=== PATIENT | female | born 1950 | race Caucasian/White ===

== ENCOUNTER 2018-09-23 17:32 | Inpatient (IN) ==
[2018-09-23] MEDS ORDERED: Diphtheria/Tetanus/Pertussis Vaccine Inj 0.5 ML Syringe IM ONE (17:41)
[2018-09-23] MEDS ORDERED: ceFAZolin 2 GM Premix Inj 2 GM/50 ML PIGGYBACK IV.SIG ONE (17:41)
[2018-09-23] MEDS ORDERED: Sod Chloride 0.9% Inj 1,000 ML IV.CONT SCH (17:45)
--- NOTE | 2018-09-23 17:48 | ED ---
HPI General Chief Complaint: Extremity Injury, Lower Stated Complaint: Fall Time Seen by Provider: 09/23/18 17:33 Source: patient Mode of arrival: EMS Limitations: physical limitation History of Present Illness HPI Narrative: Patient is a 67-year-old female who presents to the emergency room with complaints of right ankle pain. Patient reports that she was taking [place] decorations out of her attic today -she was on her last box of decorations when she was attempting to walk out of her attic. Patient reports that she missed the ladder and fell out of her attic landing on her right ankle. Reports that she did hit her head when she fell but did not suffer any loss of consciousness. Patient currently denies taking any medications, she has no medical problems. Patient with no chest pain or shortness of breath, no abdominal pain, no nausea or vomiting or diarrhea. Patient reports pains to the right ankle. Related Data Allergies Allergy/AdvReac Type Severity Reaction Status Date / Time No Known Allergies Allergy Uncoded 08/17/16 10:53 Review of Systems ROS: all other systems reviewed are negative PMFSH History History Provided By: Patient Family History Family History Other Osteoarthritis Social History Social History Smoking Status: Never smoker How Often Do You Have a Drink Containing Alcohol: 2 to 3 times a week Recent Travel in [facility] within the Last 8 Weeks: No Recent Out of Country Travel within the Last 8 Weeks: No Exam Narrative Exam Narrative: GENERAL: Moderate distress SKIN: Focused skin assessment warm/dry. HEAD: Atraumatic. Normocephalic. EYES: Pupils equal and round. No scleral icterus. No injection or drainage. ENT: No nasal bleeding or discharge. Mucous membranes pink and moist. NECK: Trachea midline. No JVD. CARDIOVASCULAR: Regular rate and rhythm. No murmur appreciated. RESPIRATORY: No accessory muscle use. Clear to auscultation. Breath sounds equal bilaterally. GASTROINTESTINAL: Abdomen soft, non-tender, nondistended. Hepatic and splenic margins not palpable. MUSCULOSKELETAL: Patient with open fracture to the left ankle, she does have positive pedal pulses with crepitus to her left tib-fib. NEUROLOGICAL: Awake and alert. No obvious cranial nerve deficits. Motor grossly within normal limits. Normal speech. PSYCHIATRIC: Appropriate mood and affect; insight and judgment normal. Procedures Orthopedic Joint Reduction Joint #1: Time Out Performed: Yes Side: right Joint Reduction Location: ankle Analgesia: procedural sedation Technique Used: traction/counter-traction and direct manipulation Post-Reduction Neuro Exam: intact and no change Post-Reduction Vascular Exam: intact Post Reduction X-Ray Obtained: Yes Splint Applied: Yes Patient Tolerated Procedure: well Procedural Sedation Indications: fracture/dislocation reduction ASA Class: ASA 1 Normal Healthy Patient Time of Last PO Intake: 13:00 Preparation: cafeteria monitor applied, pulse oximeter, capnometry used, supplemental O2 applied, suction/airway equipment at bedside and IV secured IV Propofol Dose (mgs): 50 Patient Tolerated Procedure: well Complications: hypoxia Interventions: assist by BVM Additional Comments: procedural sedation for 15 minutes Course Initial Documented Vital Signs Temperature 98.0 F 09/23/18 17:48 Pulse Rate 62 09/23/18 17:48 Respiratory Rate 16 09/23/18 17:48 Blood Pressure 182/85 H 09/23/18 17:48 Pulse Oximetry 99 09/23/18 17:48 Last Documented Vital Signs Temperature 98.0 F 09/23/18 17:48 Pulse Rate 64 09/23/18 18:40 Respiratory Rate 16 09/23/18 18:40 Blood Pressure 160/80 H 09/23/18 18:40 Pulse Oximetry 99 09/23/18 19:15 Medical Decision Making MDM Narrative Medical decision making narrative: Patient with an open ankle fracture, patient will be given 2 g of Ancef, will update her tetanus. Call made to orthopedic surgery case reviewed with mayo Knight for Dr. Groves - understands that patient has open ankle fracture with crepitus - recommends washout and reduction with splint with plans for OR tomorrow. I did place consult to orthopedic surgery pt's tetanus is up to date - right ankle with open fracture subluxation, there is gas seen in the tissue and appears to be intra-articular. case reviewed with Dr. Norman (with trauma surgery) - request admission to medicine service as she has an isolated injury case reviewed with Dr. Tan who accepts pt to service Medical Screen Exam Complete: Yes Emergency Medical Condition: Yes Differential Diagnosis Differential Diagnosis: Open ankle fracture, closed head injury Medical Records Medical records reviewed: Yes I reviewed the patient's medical records. Lab Data Result diagrams: 09/23/18 18:00 09/23/18 18:00 Lab Results 1109/23/18 09/23/18 Range/Units 18:00 18:00 18:00 WBC 7.7 (4.0-11.0) th/mm3 RBC 3.71 L (4.00-5.30) mil/mm3 Hgb 12.9 (11.6-15.3) gm/dL Hct 36.1 (35.0-46.0) % MCV 97.3 (80.0-100.0) fL MCH 34.7 H (27.0-34.0) pg MCHC 35.6 (32.0-36.0) % RDW 13.0 (11.6-17.2) % Plt Count 193 (150-450) th/mm3 MPV 8.6 (7.0-11.0) fL Neut % (Auto) 75.0 H (16.0-70.0) % Lymph % (Auto) 16.0 (9.0-44.0) % Price % (Auto) 7.5 (0.0-8.0) % Eos % (Auto) 1.1 (0.0-4.0) % Baso % (Auto) 0.4 (0.0-2.0) % Neut # (Auto) 5.8 (1.8-7.7) th/mm3 Lymph # (Auto) 1.2 (1.0-4.8) th/mm3 Price # (Auto) 0.6 (0.0-0.9) th/mm3 Eos # (Auto) 0.1 (0.0-0.4) th/mm3 Baso # (Auto) 0.0 (0.0-0.2) th/mm3 WBC Differential . Differential Comment Auto diff final PT 11.3 (9.8-11.6) sec INR 1.1 Ratio APTT 22.0 L (23.4-31.7) sec Sodium 142 (136-145) meq/L Potassium 4.1 (3.5-5.1) meq/L Chloride 109 H (98-107) meq/L Carbon Dioxide 25.3 (21.0-32.0) meq/L Anion Gap 8 (5-15) meq/L BUN 21 H (7-18) mg/dL Creatinine 1.13 H (0.50-1.00) mg/dL Estimated GFR 48 L (>89) mL/min Random Glucose 85 (74-106) mg/dL Calcium 8.5 (8.5-10.1) mg/dL Imaging Data Radiologist's impression: Ankle X-Ray 09/23/18 17:41 CONCLUSION: Apparently open fracture subluxation of the right ankle as described. Chest X-Ray 09/23/18 17:42 CONCLUSION: No evidence of acute cardiopulmonary disease. Head CT 09/23/18 17:42 CONCLUSION: 1. No bleed or other acute intracranial abnormality. 2. Extensive chronic white matter changes. 3. Right sphenoid sinusitis. Similar findings were seen on the prior MRI. . Pelvis X-Ray 09/23/18 17:42 CONCLUSION: Intact pelvis. Ankle X-Ray 09/23/18 18:39 CONCLUSION: Interim closed reduction and casting of the ankle fracture/subluxation. Near- anatomic alignment. Discharge Plan Discharge Disposition Patient Disposition: 30 Still Patient Discharge Condition Condition: Fair Discharge Details Diagnosis: Ankle fracture Physicians Team ED Provider: Ofe Anand Primary Care Provider: Melody Shah Attending Provider: Guillermo Tan Other Providers: Jorgito Groves ; [facility],Insurance Status ED Status: Admitted Patient
--- NOTE | 2018-09-23 18:10 | XR ---
EXAM DATE: 09/23/2018 6:06 PM EST AGE/SEX: 67 years / Female INDICATIONS: Pain from fall, 8 feet. CLINICAL DATA: This is the patient's initial encounter. Patient reports that signs and symptoms have been present for 1 day and indicates a pain score of 1/10. MEDICAL/SURGICAL HISTORY: None. None. COMPARISON: No prior exams available for comparison. FINDINGS: A single AP view of the chest demonstrates the lungs to be symmetrically aerated without evidence of mass, infiltrate or effusion. The cardiomediastinal contours are unremarkable. Osseous structures a re intact. CONCLUSION: No evidence of acute cardiopulmonary disease. Electronically signed by: Heriberto Arvizu MD 09/23/2018 6:09 PM EST
--- NOTE | 2018-09-23 18:10 | XR ---
EXAM DATE: 09/23/2018 6:06 PM EST AGE/SEX: 67 years / Female INDICATIONS: Pain from fall, 8 feet. CLINICAL DATA: This is the patient's initial encounter. Patient reports that signs and symptoms have been present for 1 day and indicates a pain score of 1/10. MEDICAL/SURGICAL HISTORY: None. None. COMPARISON: No prior exams available for comparison. FINDINGS: Examination of the pelvis demonstrates no evidence of fracture or dislocation. Bony mineralization i s normal. There is no widening of the sacroiliac joints. No foreign body is identified. CONCLUSION: Intact pelvis. Electronically signed by: Heriberto Arvizu MD 09/23/2018 6:09 PM EST
--- NOTE | 2018-09-23 18:13 | XR ---
EXAM DATE: 09/23/2018 6:07 PM EST AGE/SEX: 67 years / Female INDICATIONS: Pain from fall, 8 feet. CLINICAL DATA: This is the patient's initial encounter. Patient reports that signs and symptoms have been present for 1 day and indicates a pain score of 10/10. MEDICAL/SURGICAL HISTORY: None. None. COMPARISON: No prior exams available for comparison. FINDINGS: There is an oblique intra-articular fracture posterolaterally of the distal tibia. Tibiotalar joint i s laterally subluxed by approximately 1.4 cm. There is a mildly comminuted, laterally angulated dista l shaft fracture of the fibula. Gas is seen in the soft tissues, presumably an open injury. Some of the gas appears to be intra-artic ular. CONCLUSION: Apparently open fracture subluxation of the right ankle as described. Electronically signed by: Heriberto Arvizu MD 09/23/2018 6:12 PM EST
[2018-09-23 18:23] LABS: Baso % (Auto) 0.4 % (0.0-2.0); Eos # (Auto) 0.1 th/mm3 (0.0-0.4); Eos % (Auto) 1.1 % (0.0-4.0); Hematocrit 36.1 % (35.0-46.0); Hemoglobin 12.9 gm/dL (11.6-15.3); Lymph # (Auto) 1.2 th/mm3 (1.0-4.8); Mean Corpuscular HGB Conc 35.6 % (32.0-36.0); Mean Corpuscular Hemoglobin 34.7 pg (27.0-34.0); Mean Corpuscular Volume 97.3 fL (80.0-100.0); Mean Platelet Volume 8.6 fL (7.0-11.0); Mono # (Auto) 0.6 th/mm3 (0.0-0.9); Mono % (Auto) 7.5 % (0.0-8.0); Neut # (Auto) 5.8 th/mm3 (1.8-7.7); Platelet Count 193 th/mm3 (150-450); Red Blood Count 3.71 mil/mm3 (4.00-5.30); White Blood Count 7.7 th/mm3 (4.0-11.0)
[2018-09-23 18:30] LABS: INR 1.1 Ratio; Prothrombin Time 11.3 sec (9.8-11.6)
[2018-09-23] MEDS ORDERED: Acetaminophen 325 MG Tablet PO PRN (18:50)
[2018-09-23] MEDS ORDERED: Morphine Inj 4 MG/ML Vial IV.PUSH PRN (18:52)
[2018-09-23] MEDS ORDERED: HYDROmorphone PF Inj 0.5 MG/0.5 ML Syringe IV.PUSH PRN (18:52)
--- NOTE | 2018-09-23 18:57 | P.HPIM ---
History of Present Illness Primary Care Physician: Melody Shah History of Present Illness: Mrs. Muñoz is a 67-year-old female. She came in the hospital today after sustaining trauma to her right ankle. She has a right open ankle fracture. This occurred when she was coming out of the attic and fell landing up on her foot. She has no pre-existing medical history. Primary complaint is pain at the right ankle. Plan for orthopedic repair tomorrow morning. Review of Systems Constitutional: No fevers, no chills no night sweats, no fatigue, no weakness Eyes: No eye pain, no blurry vision, no loss of vision ENT: No sore throat, no ear pain, no rhinorrhea Cardiovascular: No chest pain, no tachycardia, no palpitations, no syncope Respiratory: No wheezing, no cough, no shortness of breath Gastrointestinal: No abdominal pain, no black tarry stools, no bright red blood per rectum, no vomiting, no diarrhea Musculoskeletal: Right ankle pain, no muscle cramps, no stiffness Integumentary: No rash, no ulcers, no drainage Neurologic: No sensory loss, no loss of motor function, no dizziness Psychiatric: No behavioral changes, no hallucinations, no suicidal ideations PMFSH - History History Provided By: Patient - Family History Family History: Family History (Last Updated 09/23/18 @ 18:54 by Guillermo Tan MD) Other Osteoarthritis - Tobacco History Tobacco Use In Past 30 Days: No Smoking Status: Never smoker - Alcohol History How Often Do You Have a Drink Containing Alcohol: 2 to 3 times a week - Travel History Recent Travel in the [place] Within the Last 8 Weeks: No Recent Travel Out of the Country Within the Last 8 Weeks: No - Immunization History Tetanus Immunization: <5 Years Medications and Allergies Active Medications: Active Medications Sodium Chloride (Ns Flush) 2 ml IV.FLUSH PRN PRN PRN Reason: FLUSH AFTER USING IV ACCESS Allergies Allergy/AdvReac Type Severity Reaction Status Date / Time No Known Allergies Allergy Uncoded 08/17/16 10:53 Exam Vital signs: Vital Signs 09/23/18 17:48 09/23/18 17:54 Temperature 98.0 F Pulse Rate 62 60 Respiratory Rate 16 Blood Pressure 182/85 H Pulse Oximetry 99 Intake & Output 09/22/18 09/23/18 09/23/18 18:59 06:59 18:59 Weight 54.431 kg Narrative: GENERAL: NAD, A&Ox3 HEAD: Normocephalic. NECK: Supple, trachea midline. No lymphadenopathy. EYES: No scleral icterus. No injection or drainage. CARDIOVASCULAR: Regular rate and rhythm without murmurs, gallops, or rubs. RESPIRATORY: Breath sounds equal bilaterally. No accessory muscle use. GASTROINTESTINAL: Abdomen soft, non-tender, nondistended. MUSCULOSKELETAL: No cyanosis, or edema. Open fracture right ankle (bandaged) SKIN: Warm and dry. NEURO: No focal neurological deficits. Results - Labs CBC & Chem 7: 09/23/18 18:00 09/23/18 18:00 Labs: Short CBC 09/23/18 Range/Units 18:00 WBC 7.7 (4.0-11.0) th/mm3 Hgb 12.9 (11.6-15.3) gm/dL Hct 36.1 (35.0-46.0) % Plt Count 193 (150-450) th/mm3 - Imaging Impressions Ankle X-Ray 09/23/18 17:41 CONCLUSION: Apparently open fracture subluxation of the right ankle as described. Chest X-Ray 09/23/18 17:42 CONCLUSION: No evidence of acute cardiopulmonary disease. Pelvis X-Ray 09/23/18 17:42 CONCLUSION: Intact pelvis. Caprini VTE Risk Assessment Caprini VTE Risk Assessment: Moderate/High Risk (score >= 2) VTE Pharmacological Exception Reason: Active bleeding VTE Mechanical Exception: LE injury/wound Caprini Risk Assessment Model: Point Value = 1 Point Value = 2 Point Value = 3 Point Value = 5 Age 41-60 Minor surgery BMI > 25 kg/m2 Swollen legs Varicose veins or History of unexplained or recurrent spontaneous Oral contraceptives or hormone replacement Sepsis (< 1 month) Serious lung disease, including pneumonia (< 1 month) Abnormal pulmonary function Acute myocardial infarction Congestive heart failure (< 1 month) History of inflammatory bowel disease Medical patient at bed rest Age 61-74 Arthroscopic surgery Major open surgery (> 45 min) Laparoscopic surgery (> 45 min) Malignancy Confined to bed (> 72 hours) Immobilizing plaster cast Central venous access Age >= 75 History of VTE Family history of VTE Factor V Leiden Prothrombin [id number] Lupus anticoagulant Anticardiolipin antibodies Elevated serum homocysteine Heparin-induced thrombocytopenia Other congenital or acquired thrombophilia Stroke (< 1 month) Elective arthroplasty Hip, pelvis, or leg fracture Acute spinal cord injury (< 1 month) Prophylaxis Regimen: Total Risk Factor Score Risk Level Prophylaxis Regimen 0-1 Low Early ambulation 2 Moderate Order ONE of the following: *Sequential Compression Device (SCD) *Heparin 5000 units SQ BID 3-4 Higher Order ONE of the following medications: *Heparin 5000 units SQ TID *Enoxaparin/Lovenox 40 mg SQ daily (WT < 150 kg, CrCl > 30 mL/min) *Enoxaparin/Lovenox 30 mg SQ daily (WT < 150 kg, CrCl > 10-29 mL/min) *Enoxaparin/Lovenox 30 mg SQ BID (WT < 150 kg, CrCl > 30 mL/min) AND/OR *Sequential Compression Device (SCD) 5 or more Highest Order ONE of the following medications: *Heparin 5000 units SQ TID (Preferred with Epidurals) *Enoxaparin/Lovenox 40 mg SQ daily (WT < 150 kg, CrCl > 30 mL/min) *Enoxaparin/Lovenox 30 mg SQ daily (WT < 150 kg, CrCl > 10-29 mL/min) *Enoxaparin/Lovenox 30 mg SQ BID (WT < 150 kg, CrCl > 30 mL/min) AND *Sequential Compression Device (SCD) Assessment and Plan - Plan 67-year-old female admitted secondary to open fracture right ankle sustaining a fall Right ankle trauma Open right ankle fracture Consult orthopedic surgeon N.p.o. after midnight IV hydration Bedrest Continue pain medications as needed DVT prophylaxis SCDs overnight Fresh open wound and pending surgery, will avoid systemic blood thinners for now
[2018-09-23 19:05] LABS: Calcium 8.5 mg/dL (8.5-10.1); Carbon Dioxide 25.3 meq/L (21.0-32.0); Potassium 4.1 meq/L (3.5-5.1)
--- NOTE | 2018-09-23 19:57 | XR ---
EXAM DATE: 09/23/2018 7:47 PM EST AGE/SEX: 67 years / Female INDICATIONS: Post reduction. CLINICAL DATA: This is the patient's initial encounter. Patient reports that signs and symptoms have been present for 1 day and indicates a pain score of 2/10. MEDICAL/SURGICAL HISTORY: None. None. COMPARISON: [facility] [place], ANKLE LIMITED RIGHT 2V, 09/23/2018. . FINDINGS: Interim closed reduction and casting of the distal tibia and fibula fractures and the tibiotalar subl uxation. Alignment is near-anatomic. CONCLUSION: Interim closed reduction and casting of the ankle fracture/subluxation. Near-anatomic alignment. Electronically signed by: Heriberto Arvizu MD 09/23/2018 7:55 PM EST
--- NOTE | 2018-09-23 20:03 | CT ---
EXAM DATE: 09/23/2018 7:57 PM EST AGE/SEX: 67 years / Female INDICATIONS: Trauma, patient fell through a ceiling tile. No LOC. CLINICAL DATA: This is the patient's initial encounter. Patient reports that signs and symptoms have been present for 1 day and indicates a pain score of 0/10. MEDICAL/SURGICAL HISTORY: None. None. RADIATION DOSE: 56.77 CTDI (mGy) COMPARISON: [facility], MR BRAIN W/O CONTRAST, 07/25/2018. . TECHNIQUE: CT of the head without contrast. Using automated exposure control and adjustment of the mA and/or kV according to patient size, radiation dose was kept as low as reasonably achievable to ob tain optimal diagnostic quality images. DICOM format image data is available electronically for revi ew and comparison. FINDINGS: Cerebrum: The ventricles are normal for age. No evidence of midline shift, mass lesion, hemorrhage or acute infarction. No extraaxial fluid collections are seen. Chronic low-attenuation seen in the p eriventricular white matter Posterior Fossa: The cerebellum and brainstem are intact. The 4th ventricle is midline. The cerebe llopontine angle is unremarkable. Extracranial: The visualized portion of the orbits is intact. Fluid again seen in the right sphenoid air cell, somewhat intermediate in attenuation similar amount to the prior MRI and probably partly d esiccated fluid from sinusitis. No perceptible skull fracture. Skull: The calvaria is intact. No evidence of skull fracture. CONCLUSION: 1. No bleed or other acute intracranial abnormality. 2. Extensive chronic white matter changes. 3. Right sphenoid sinusitis. Similar findings were seen on the prior MRI. . Electronically signed by: Heriberto Arvizu MD 09/23/2018 8:02 PM EST
[2018-09-23] MEDS: Sod Chloride 0.9% Inj 1,000 ML IV.CONT SCH (20:44)
[2018-09-23] MEDS: Morphine Inj 4 MG/ML Vial IV.PUSH PRN (21:11)
[2018-09-24] MEDS ORDERED: ceFAZolin 2 GM Premix Inj 2 GM/50 ML PIGGYBACK IV.SIG SCH (02:00)
[2018-09-24] MEDS ORDERED: ceFAZolin Inj 2,000 MG in Sodium Chlor 0.9% Inj 80 ML IV.SIG SCH ×2 (02:00→09:00)
[2018-09-24] MEDS: Morphine Inj 4 MG/ML Vial IV.PUSH PRN (02:29)
[2018-09-24] MEDS ORDERED: Metoprolol Tartrate 25 MG Tablet PO ONE (06:28)
[2018-09-24] MEDS ORDERED: Chlorhexidine Gluconate 2% 1 Pack (2 Cloths) TOPICAL ONE (06:28)
--- NOTE | 2018-09-24 06:33 | P.PNOP ---
Subjective Interval history: Fall last night while getting [place] decorations out of the attic. She fell through ceiling and landed on the floor. Open right ankle with deformity. No other complaints. Physical Exam Vital signs: Vital Signs 09/23/18 17:48 09/23/18 17:54 09/23/18 18:40 Temperature 98.0 F Pulse Rate 62 60 64 Respiratory Rate 16 16 Blood Pressure 182/85 H 160/80 H Pulse Oximetry 99 98 09/23/18 19:15 09/23/18 22:00 09/24/18 00:00 Temperature 98.2 F 98.4 F Pulse Rate 69 69 Respiratory Rate 18 18 Blood Pressure 167/79 H 153/74 H Pulse Oximetry 99 98 99 09/24/18 04:00 Temperature 98 F Pulse Rate 71 Respiratory Rate 18 Blood Pressure 134/73 Pulse Oximetry 97 Intake & Output 09/23/18 09/23/18 09/24/18 06:59 18:59 06:59 Intake Total 678 / 678 Balance 678 / 678 Weight 54.431 kg 57.6 kg Intake: IV 678 / 678 NS Inj 1,000 ML @ 80 mls/hr IV. 578 / 578 CONT .[id number] [facility] Rx#:[id number] Ancef 2 GM Premix Inj 2 gm In 50 / 50 50 ml @ 100 mls/hr IV.SIG Q8H [facility] Rx#:[id number] Other: # Voids 2 Date of Last Bowel Movement 09/23/18 Weight On Admission 54.43 kg Narrative: Bilateral upper extremities: Full range of motion neurovascular intact Left lower extremity: Full range of motion and neurovascularly intact Right lower extremity: No pain with hip or knee range of motion. Short leg splint in place. Intact sensation distally is able to move all toes. Good capillary refill Results - Labs CBC & Chem 7: 09/23/18 18:00 09/23/18 18:00 Laboratory Results - last 24 hr 09/23/18 09/23/18 09/23/18 18:00 18:00 18:00 WBC 7.7 RBC 3.71 L Hgb 12.9 Hct 36.1 MCV 97.3 MCH 34.7 H MCHC 35.6 RDW 13.0 Plt Count 193 MPV 8.6 Neut % (Auto) 75.0 H Lymph % (Auto) 16.0 [place] % (Auto) 7.5 Eos % (Auto) 1.1 Baso % (Auto) 0.4 Neut # (Auto) 5.8 Lymph # (Auto) 1.2 [place] # (Auto) 0.6 Eos # (Auto) 0.1 Baso # (Auto) 0.0 WBC Differential . Differential Comment Auto diff final PT 11.3 INR 1.1 APTT 22.0 L Sodium 142 Potassium 4.1 Chloride 109 H Carbon Dioxide 25.3 Anion Gap 8 BUN 21 H Creatinine 1.13 H Estimated GFR 48 L Random Glucose 85 Calcium 8.5 - Imaging Impressions Ankle X-Ray 09/23/18 17:41 CONCLUSION: Apparently open fracture subluxation of the right ankle as described. Chest X-Ray 09/23/18 17:42 CONCLUSION: No evidence of acute cardiopulmonary disease. Head CT 09/23/18 17:42 CONCLUSION: 1. No bleed or other acute intracranial abnormality. 2. Extensive chronic white matter changes. 3. Right sphenoid sinusitis. Similar findings were seen on the prior MRI. . Pelvis X-Ray 09/23/18 17:42 CONCLUSION: Intact pelvis. Ankle X-Ray 09/23/18 18:39 CONCLUSION: Interim closed reduction and casting of the ankle fracture/subluxation. Near- anatomic alignment. Assessment and Plan - Assessment and Plan Open right ankle fracture with dislocation N.p.o. Surgery this morning for irrigation debridement of the right ankle with open reduction internal fixation versus external fixation. Decision will be made in surgery due to swelling, contamination and skin condition. Signed consents
[2018-09-24] MEDS ORDERED: ceFAZolin 1 GM Premix Inj 1 GM/50 ML FROZ.PIGGY IV.SIG ONE (06:48)
[2018-09-24 06:55] LABS: Baso % (Auto) 0.3 % (0.0-2.0); Eos # (Auto) 0.1 th/mm3 (0.0-0.4); Hematocrit 34.8 % (35.0-46.0); Hemoglobin 12.1 gm/dL (11.6-15.3); Lymph # (Auto) 1.6 th/mm3 (1.0-4.8); Lymph % (Auto) 22.1 % (9.0-44.0); Mean Corpuscular HGB Conc 34.8 % (32.0-36.0); Mean Corpuscular Hemoglobin 34.3 pg (27.0-34.0); Mean Corpuscular Volume 98.6 fL (80.0-100.0); Mean Platelet Volume 8.6 fL (7.0-11.0); Mono # (Auto) 0.8 th/mm3 (0.0-0.9); Mono % (Auto) 11.4 % (0.0-8.0); Neut # (Auto) 4.6 th/mm3 (1.8-7.7); Neut % (Auto) 65.2 % (16.0-70.0); Platelet Count 170 th/mm3 (150-450); Red Blood Count 3.53 mil/mm3 (4.00-5.30); Red Cell Distribution Width 12.8 % (11.6-17.2); White Blood Count 7.1 th/mm3 (4.0-11.0)
[2018-09-24] MEDS ORDERED: Sodium Chlor 0.9% Inj 500 ML IV.SIG SCH (07:00)
[2018-09-24 07:25] LABS: Alanine Aminotransferase 17 U/L (10-53); Albumin 3.1 g/dL (3.4-5.0); Alkaline Phosphatase 41 U/L (45-117); Anion Gap 6 meq/L (5-15); Aspartate Aminotransferase 16 U/L (15-37); Blood Urea Nitrogen 17 mg/dL (7-18); Calcium 7.6 mg/dL (8.5-10.1); Chloride 112 meq/L (98-107); Glomerular Filtration Rate 61 mL/min (>89); Glucose,Random 97 mg/dL (74-106); Potassium 3.7 meq/L (3.5-5.1); Sodium 142 meq/L (136-145); Total Protein 5.7 g/dL (6.4-8.2)
[2018-09-24] MEDS ORDERED: Post-op Orders (for Pharmacy) OTHER STA (08:22)
--- NOTE | 2018-09-24 08:27 | P.OP ---
- Preoperative Diagnosis (1) Open bimalleolar fracture of right ankle (2) Ankle syndesmosis disruption Date of procedure: 09/24/18 Procedure: Irrigation and debridement of open right ankle fracture, open reduction internal fixation right distal fibula, open reduction to fixation right ankle syndesmosis Anesthesia: ANISHA Surgeon: Jorgito Vargas MD Senior Asset Manager: JUANA Kennedy PA-C The surgical procedure was assisted by my physician assistant reading teacher. My P.A. presence was necessary throughout this case for the manipulation and positioning of the surgical extremity. My P.A. was assisting me throughout the duration of this procedure. The skill set of a physician assistant reading teacher was medically necessary to complete this procedure. During the surgical case the surgical attendant was working at the back table and the physician assistant reading teacher was directly assisting me. Operation and Findings: Implants used: CLAY Plan of activity: Nonweightbearing Details of procedure: Patient was seen and evaluated preoperatively and found to have a displaced open right ankle fracture. Informed consent was obtained after a detailed discussion of risk and benefits of surgery. The operative site was marked. Patient was brought to the OR, placed on the OR table, and given IV sedation and general endotracheal anesthesia. IV antibiotics were given preoperatively. A timeout procedure was performed. The left leg was prepped with alcohol followed by Hibiclens and draped in the usual sterile fashion. Procedure began with irrigation and debridement of open right ankle. The medial laceration was extended proximally and distally. There was a small avulsion fracture of the medial malleolus. Curettes were used to debride bone. Overall the wound was cleaned. An excisional debridement was performed. The soft tissue, bone, and joint were thoroughly irrigated with 3 L of sterile saline. Next, attention was turned towards the distal fibula. A 5-inch incision was made over the distal fibula. The subcutaneous tissue was dissected with Bovie. The fracture site was visualized. The fracture site was cleaned with curets. The fracture was now reduced. The fracture keyed into anatomic alignment. K- wires were used to hold provisional fixation. A plate was selected and contoured to the fibula. The plate was provisionally held to bone with K- wires. 3.5 cortical screws were used to compress the plate to bone. Multiple cortical screws were placed above and below the fracture. Next, attention was turned to the syndesmosis. The syndesmosis was stressed. There was clear widening of the syndesmosis with external rotation of the ankle. The syndesmosis was now held in a reduced position with the ankle in neutral position. Two cortical screws were now placed through the fibula plate into the tibia. Fluoroscopy confirmed appropriate screw placement with well- aligned syndesmosis. Incisions were thoroughly irrigated. The subcutaneous tissue was closed with 3-0 PDS and the skin was closed with 3-0 nylon. Sterile dressings were applied. The patient was transferred to Recovery in stable condition.
--- NOTE | 2018-09-24 08:33 | P.CONOP ---
[facility] Orthopedics Consult Note - [facility] Consult date: 09/24/18 Chief complaint: Open Ankle Fracture Narrative: Selin is a 67-year-old female. She was going up into the attic to get up [employer] decorations. She fell through the ceiling approximately 8 feet and landed on the floor. She landed mostly on her right ankle. She had immediate right ankle pain and deformity. She presented to the emergency room where x- rays revealed an open fracture of her right ankle. She received IV antibiotics. She was placed into a well molded splint. She is currently awake on the orthopedic floor. Her only complaint is her right ankle. She did not hit her head. She denies dizziness, syncope, or loss of consciousness. Pain was initially severe and intense. Pain is improved with rest and is worse with motion. Review of Systems Patient denies fevers, chills, weight loss, headache, visual changes, hearing loss, chest pain, palpitations, shortness of breath, nausea, vomiting, no urinary changes, diarrhea, bowel changes, neck pain, back pain, skin rashes, weakness of extremities, easy bleeding, enlarged lymph nodes, numbness of extremities, anxiety, or depression. She complains of right ankle pain Patient's social history, past medical history, and family history were reviewed on chart and with patient. [facility] - History History Provided By: Patient - Medical History Medical History: Medical History (Last Updated 09/24/18 @ 08:30 by Jorgito Groves MD) Osteoarthritis - Family History Family History: Family History (Last Updated 09/23/18 @ 18:54 by Guillermo Tan MD) Other Osteoarthritis - Social History I have reviewed the patient's Social History: Yes - Tobacco History Second Hand Smoke Exposure: No Tobacco Use In Past 30 Days: No Smoking Status: Never smoker - Alcohol History How Often Do You Have a Drink Containing Alcohol: 2 to 3 times a week - Substance Use History Substance History: No History of Abuse - Travel History Recent Travel in the [place] Within the Last 8 Weeks: No Recent Travel Out of the Country Within the Last 8 Weeks: No - Immunization History Tetanus Immunization: <5 Years Hx Influenza Vaccine This Season: No Medications and Allergies Active Medications: Active Medications Acetaminophen (Tylenol) 650 mg PO Q4H PRN PRN Reason: Temp > 100.4 Hydrocodone Bitart/Acetaminophen (Stendal 7.5/325) 1 tab PO Q3H PRN PRN Reason: Pain Scale 3-10 Al Hydroxide/Mg Hydroxide (Milk Of Malaika Weissq) 30 ml PO Q12H PRN PRN Reason: Mild Constipation Aspirin (Ecotrin) 81 mg PO Q12H [facility] Calcium/Vitamin D (Oscal With D 250/125 Mg) 1 tab PO TID [facility] Diphenhydramine HCl (Benadryl) 25 mg PO Q6H PRN PRN Reason: ITCHING Hydromorphone HCl (Dilaudid Pf Inj) 0.5 mg IV.PUSH Q4H PRN PRN Reason: BREAKTHROUGH PAIN Last Admin: 09/23/18 23:06 Dose: 0.5 mg Sodium Chloride (Ns Inj) 1,000 mls @ 80 mls/hr IV.CONT .[id number] K[facility]LEIGH Last Infusion: 09/24/18 06:23 Dose: 0 mls/hr Cefazolin Sodium/Dextrose (Ancef 2 Gm Premix Inj) 2 gm in 50 mls @ 100 mls/hr IV.SIG Q8H K[facility]LEIGH Last Infusion: 09/24/18 03:04 Dose: Infused Lactated Ringer's (Lr 1000 Ml Inj) 1,000 mls @ 30 mls/hr IV.SIG .Q24H [facility]LE[facility] Stop: 09/25/18 06:29 Last Admin: 09/24/18 06:32 Dose: 30 mls/hr Sodium Chloride (Ns Inj) 500 mls @ 30 mls/hr IV.SIG .Q10H [facility] Cefazolin Sodium 2,000 mg/ (Sodium Chloride) 100 mls @ 200 mls/hr IV.SIG Q8H [facility] Stop: 09/25/18 01:29 Gentamicin Sulfate/Sodium Chloride (Gentamicin/Ns 80 Mg Premix) 100 mls @ 200 mls/hr IV.SIG Q8H [facility] Stop: 09/25/18 00:59 Lactobacillus Acidophilus (Lactinex) 1 tab PO TID [facility] Lorazepam (Ativan Inj) 0.5 mg IV.PUSH Q4HR PRN PRN Reason: Anxiety or Insomnia Miscellaneous Information (Misc Post-Op Orders (For Pharmacy)) 0 each OTHER STAT STA Stop: 09/24/18 08:23 Morphine Sulfate (Morphine Inj) 4 mg IV.PUSH Q4H PRN PRN Reason: Pain 7 to 10 Last Admin: 09/24/18 02:29 Dose: 4 mg Morphine Sulfate (Morphine Inj) 2 mg IV.PUSH Q4H PRN PRN Reason: Pain 3 to 6 Ondansetron HCl (Zofran Inj) 4 mg IV.PUSH Q6H PRN PRN Reason: NAUSEA OR VOMITING Ondansetron HCl (Zofran Odt) 4 mg PO Q6H PRN PRN Reason: NAUSEA OR VOMITING Senna/Docusate Sodium (Leah-Colace) 1 tab PO BID [facility] Sennosides (Senokot) 17.2 mg PO BID PRN PRN Reason: Moderate Constipation Sodium Chloride (Ns Flush) 2 ml IV.FLUSH PRN PRN PRN Reason: FLUSH AFTER USING IV ACCESS Sodium Chloride (Ns Flush) 2 ml IV.FLUSH BID [facility] Sodium Chloride (Ns Flush) 2 ml IV.FLUSH PRN PRN PRN Reason: FLUSH AFTER USING IV ACCESS Allergies Allergy/AdvReac Type Severity Reaction Status Date / Time No Known Allergies Allergy Uncoded 08/17/16 10:53 Home Medications Medication Instructions Recorded Confirmed Type calcium carbonate-vitamin D3 1 tab PO BID 09/23/18 09/23/18 History [Calcium 500 + D] cholecalciferol (vitamin D3) 1,000 unit PO DAILY 09/23/18 09/23/18 History [Vitamin D3] cyanocobalamin (vitamin B-12) 1,000 mcg PO DAILY 09/23/18 09/23/18 History [Vitamin B-12] escitalopram oxalate [Lexapro] 10 mg PO DAILY 09/23/18 09/23/18 History progesterone micronized 2.1 mg PO DAILY 09/23/18 09/23/18 History valacyclovir [Valtrex] 500 mg PO DAILY 09/23/18 09/23/18 History Exam Vital signs: Vital Signs 09/23/18 17:48 09/23/18 17:54 09/23/18 18:40 Temperature 98.0 F Pulse Rate 62 60 64 Respiratory Rate 16 16 Blood Pressure 182/85 H 160/80 H Pulse Oximetry 99 98 09/23/18 19:15 09/23/18 22:00 09/24/18 00:00 Temperature 98.2 F 98.4 F Pulse Rate 69 69 Respiratory Rate 18 18 Blood Pressure 167/79 H 153/74 H Pulse Oximetry 99 98 99 09/24/18 04:00 Temperature 98 F Pulse Rate 71 Respiratory Rate 18 Blood Pressure 134/73 Pulse Oximetry 97 Intake & Output 09/23/18 09/24/18 09/24/18 18:59 06:59 18:59 Intake Total 678 / 678 Balance 678 / 678 Weight 54.431 kg 57.6 kg Intake: IV 678 / 678 NS Inj 1,000 ML @ 80 mls/hr IV. 578 / 578 CONT .[id number] [facility] Rx#:[id number] Ancef 2 GM Premix Inj 2 gm In 50 / 50 50 ml @ 100 mls/hr IV.SIG Q8H [facility] Rx#:[id number] Other: # Voids 2 Date of Last Bowel Movement 09/23/18 Weight On Admission 54.43 kg Narrative: Patient is a pleasant 67-year-old female. General: Awake and alert. No acute distress. Appears well-developed well- nourished Head: Normocephalic, atraumatic pupils are equal Neck: Soft, nontender, trachea midline Abdomen: Soft, nondistended Examination of right arm reveals no pain or deformity with shoulder, elbow, or wrist motion. Skin is intact. Radial pulse is palpable. Normal capillary refill in fingers. Sensation is intact in radial, ulnar, and median nerve distributions. Shoe Repair Supervisor strength is +5. No lymphadenopathy noted. Examination of left arm reveals no pain or deformity with shoulder, elbow, or wrist motion. Skin is intact. Radial pulse is palpable. Normal capillary refill in fingers. Sensation is intact in radial, ulnar, and median nerve distributions. Shoe Repair Supervisor strength is +5. No lymphadenopathy noted. Examination of left lower extremity reveals no pain or deformity with hip, knee , or ankle motion. Skin is intact. Sensation is intact in left foot. Dorsalis pedis pulse is palpable. Normal capillary refill and feet. Thigh and calf compartments are soft. No lymphadenopathy noted. +5 strength of ankle dorsiflexion and plantarflexion. Examination of right lower extremity reveals no pain or deformity with hip or knee motion. She has pain with any ankle motion. There is mild ankle swelling. There is a 2 cm laceration over the medial ankle. Sensation is intact in right foot. Dorsalis pedis pulse is palpable. Normal capillary refill and feet. Thigh and calf compartments are soft. No lymphadenopathy noted. Results - Labs Result Diagrams: 09/24/18 05:24 09/24/18 05:24 Labs: Laboratory Results - last 24 hr 09/23/18 09/23/18 09/23/18 18:00 18:00 18:00 WBC 7.7 RBC 3.71 L Hgb 12.9 Hct 36.1 MCV 97.3 MCH 34.7 H MCHC 35.6 RDW 13.0 Plt Count 193 MPV 8.6 Neut % (Auto) 75.0 H Lymph % (Auto) 16.0 [place] % (Auto) 7.5 Eos % (Auto) 1.1 Baso % (Auto) 0.4 Neut # (Auto) 5.8 Lymph # (Auto) 1.2 [place] # (Auto) 0.6 Eos # (Auto) 0.1 Baso # (Auto) 0.0 WBC Differential . Differential Comment Auto diff final PT 11.3 INR 1.1 APTT 22.0 L Sodium 142 Potassium 4.1 Chloride 109 H Carbon Dioxide 25.3 Anion Gap 8 BUN 21 H Creatinine 1.13 H Estimated GFR 48 L Random Glucose 85 Calcium 8.5 Total Bilirubin AST ALT Alkaline Phosphatase Total Protein Albumin 09/24/18 09/24/18 05:24 05:24 WBC 7.1 RBC 3.53 L Hgb 12.1 Hct 34.8 L MCV 98.6 MCH 34.3 H MCHC 34.8 RDW 12.8 Plt Count 170 MPV 8.6 Neut % (Auto) 65.2 Lymph % (Auto) 22.1 [place] % (Auto) 11.4 H Eos % (Auto) 1.0 Baso % (Auto) 0.3 Neut # (Auto) 4.6 Lymph # (Auto) 1.6 [place] # (Auto) 0.8 Eos # (Auto) 0.1 Baso # (Auto) 0.0 WBC Differential . Differential Comment Auto diff final PT INR APTT Sodium 142 Potassium 3.7 Chloride 112 H Carbon Dioxide 24.0 Anion Gap 6 BUN 17 Creatinine 0.93 Estimated GFR 61 L Random Glucose 97 Calcium 7.6 L D Total Bilirubin 0.3 AST 16 ALT 17 Alkaline Phosphatase 41 L Total Protein 5.7 L Albumin 3.1 L - Diagnostic results Imaging: Impressions Ankle X-Ray 09/23/18 17:41 CONCLUSION: Apparently open fracture subluxation of the right ankle as described. Chest X-Ray 09/23/18 17:42 CONCLUSION: No evidence of acute cardiopulmonary disease. Head CT 09/23/18 17:42 CONCLUSION: 1. No bleed or other acute intracranial abnormality. 2. Extensive chronic white matter changes. 3. Right sphenoid sinusitis. Similar findings were seen on the prior MRI. . Pelvis X-Ray 09/23/18 17:42 CONCLUSION: Intact pelvis. Ankle X-Ray 09/23/18 18:39 CONCLUSION: Interim closed reduction and casting of the ankle fracture/subluxation. Near- anatomic alignment. Ankle/Foot x-ray: report reviewed, image reviewed Assessment and Plan - Assessment and Plan Selin is a 67-year-old female. She had a fall through her attic floor resulting in open right ankle fracture. The risk and benefits of surgery were discussed in depth with patient. I will plan on irrigation debridement of open fracture followed by open reduction internal fixation of right ankle today. All questions were answered. The risk and benefits of surgery were discussed in depth with patient. The risk of surgery include bleeding, infection, injuries to arteries, nerves, or blood vessels, infection, wound complications, nonunion, malunion, painful hardware, wound infection, ankle stiffness, loss of motion, ankle arthritis, and need for further surgery. I also discussed medical complications including blood clots, pneumonia, stroke, heart attack, and . Informed consent was obtained and all questions were answered. N.p.o.--plan on surgery this morning Calcium and vitamin D supplementation Physical therapy consult Follow-up with Dr. Groves in 2 weeks Daniel, CHRISTINA vang, ANANDA A mid-level provider in my office (nurse practitioner or physician assistant city attorney) may see this patient on follow-up visits and continue to implement the objectives of this plan including: Starting or adjusting medications, injections , cast application, orthotics, brace application, physical therapy, radiological studies (including x-ray, MRI, CT, ultrasound, bone scan), vascular studies, neurologic studies, specialist consultation, and proceeding with surgical management, as appropriate.
[2018-09-24] MEDS ORDERED: *morphine SULFATE 10 MG/ML PERIprocedure ONLY ONE (08:46)
[2018-09-24] MEDS: Calcium/Vitamin D 250/125 MG Tablet PO SCH ×3 (10:00→17:38)
[2018-09-24] MEDS: Lactobacillus Acidophilus/L. Spores Tablet PO SCH ×3 (10:00→17:38)
[2018-09-24] MEDS: Senna/Docusate Sodium 8.6/50 MG Tablet PO SCH ×2 (10:01→21:12)
--- NOTE | 2018-09-24 13:43 | XR ---
EXAM DATE: 09/24/2018 1:33 PM EST AGE/SEX: 67 years / Female INDICATIONS: ORIF right ankle. CLINICAL DATA: This is the patient's initial encounter. Patient reports that signs and symptoms have been present for 1 day and indicates a pain score of Nonresponsive. MEDICAL/SURGICAL HISTORY: None. None. COMPARISON: No prior exams available for comparison. FINDINGS: Intraoperative examination demonstrates plating of the patient's distal fibular fracture. There are 2 screws across the tib-fib joint as well. Alignment is excellent. CONCLUSION: Excellent alignment of the patient's fracture post plating. Electronically signed by: Guillermo Bowen MD 09/24/2018 1:42 PM EST
--- NOTE | 2018-09-24 14:04 | P.DCO ---
- Physical Therapy Order: Evaluate and treat, Improve ambulation, Strength and gait training - Home Health Nursing Order: Medical education, Signs/symptoms of disease process, Wound care and dressing changes - Case Management Consult Case Management Consult-Home Health: Yes - Certification I have seen patient Selin Muñoz on 09/24/18. My clinical findings support the need for the requested home health care services because: Limited mobility due to disease progression I certify that my clinical findings support that this patient is homebound because: Post-op weakness
--- NOTE | 2018-09-24 14:38 | P.PN ---
Subjective Interval history: Follow-up visit for right ankle fracture. Patient seen and examined sitting up in recliner with family and friends at bedside. She reports her pain is well controlled at the moment and denies any nausea, vomiting, cough, shortness of breath, chest pain or dizziness. Voiding without any dysuria. Physical Exam Vital signs: Vital Signs 09/23/18 17:48 09/23/18 17:54 09/23/18 18:40 Temperature 98.0 F Pulse Rate 62 60 64 Respiratory Rate 16 16 Blood Pressure 182/85 H 160/80 H Pulse Oximetry 99 98 09/23/18 19:15 09/23/18 22:00 09/24/18 00:00 Temperature 98.2 F 98.4 F Pulse Rate 69 69 Respiratory Rate 18 18 Blood Pressure 167/79 H 153/74 H Pulse Oximetry 99 98 99 09/24/18 04:00 09/24/18 08:40 09/24/18 08:45 Temperature 98 F 97.6 F Pulse Rate 71 91 H 76 Respiratory Rate 18 21 8 L Blood Pressure 134/73 114/60 111/60 Pulse Oximetry 97 98 99 09/24/18 08:57 09/24/18 09:00 09/24/18 09:15 Temperature 97.7 F Pulse Rate 76 74 Respiratory Rate 17 20 14 Blood Pressure 112/57 L 99/52 L Pulse Oximetry 97 100 09/24/18 09:30 09/24/18 12:00 Temperature 98.2 F Pulse Rate 72 77 Respiratory Rate 15 12 Blood Pressure 121/59 L 114/55 L Pulse Oximetry 100 95 Intake & Output 09/23/18 09/24/18 09/24/18 18:59 06:59 18:59 Intake Total 678 / 678 800 / 800 Output Total Balance 678 / 678 775 / 775 Weight 54.431 kg 57.6 kg Intake: IV 678 / 678 NS Inj 1,000 ML @ 80 mls/hr IV. 578 / 578 CONT .[id number] [facility] Rx#:[id number] Ancef 2 GM Premix Inj 2 gm In 50 / 50 50 ml @ 100 mls/hr IV.SIG Q8H [facility] Rx#:[id number] Anesthesia Amount 800 / 800 Output: Estimated Blood Loss Other: # Voids 2 Date of Last Bowel Movement 09/23/18 Weight On Admission 54.43 kg Narrative: GENERAL: Well-nourished, well-developed female in no acute distress. SKIN: Warm and dry. HEAD: Atraumatic. Normocephalic. EYES: Pupils equal and round. No scleral icterus. No injection or drainage. ENT: No nasal bleeding or discharge. Mucous membranes pink and moist. NECK: Trachea midline. No JVD. CARDIOVASCULAR: Regular rate and rhythm. RESPIRATORY: No accessory muscle use. Clear to auscultation. Breath sounds equal bilaterally. GASTROINTESTINAL: Abdomen soft, non-tender, nondistended. + Bowel sounds MUSCULOSKELETAL: Extremities without clubbing or cyanosis. Right lower extremity in immobilizer, positive toe movement, capillary refill less than 3 seconds, warm, positive sensation. NEUROLOGICAL: Awake, alert, oriented x3. No obvious cranial nerve deficits. Motor grossly within normal limits. Normal speech. PSYCHIATRIC: Appropriate mood and affect; insight and judgment normal. Results - Labs CBC & Chem 7: 09/24/18 05:24 09/24/18 05:24 Laboratory Results - last 24 hr 09/23/18 09/23/18 09/23/18 18:00 18:00 18:00 WBC 7.7 RBC 3.71 L Hgb 12.9 Hct 36.1 MCV 97.3 MCH 34.7 H MCHC 35.6 RDW 13.0 Plt Count 193 MPV 8.6 Neut % (Auto) 75.0 H Lymph % (Auto) 16.0 [place] % (Auto) 7.5 Eos % (Auto) 1.1 Baso % (Auto) 0.4 Neut # (Auto) 5.8 Lymph # (Auto) 1.2 [place] # (Auto) 0.6 Eos # (Auto) 0.1 Baso # (Auto) 0.0 WBC Differential . Differential Comment Auto diff final PT 11.3 INR 1.1 APTT 22.0 L Sodium 142 Potassium 4.1 Chloride 109 H Carbon Dioxide 25.3 Anion Gap 8 BUN 21 H Creatinine 1.13 H Estimated GFR 48 L Random Glucose 85 Calcium 8.5 Total Bilirubin AST ALT Alkaline Phosphatase Total Protein Albumin 09/24/18 09/24/18 05:24 05:24 WBC 7.1 RBC 3.53 L Hgb 12.1 Hct 34.8 L MCV 98.6 MCH 34.3 H MCHC 34.8 RDW 12.8 Plt Count 170 MPV 8.6 Neut % (Auto) 65.2 Lymph % (Auto) 22.1 [place] % (Auto) 11.4 H Eos % (Auto) 1.0 Baso % (Auto) 0.3 Neut # (Auto) 4.6 Lymph # (Auto) 1.6 [place] # (Auto) 0.8 Eos # (Auto) 0.1 Baso # (Auto) 0.0 WBC Differential . Differential Comment Auto diff final PT INR APTT Sodium 142 Potassium 3.7 Chloride 112 H Carbon Dioxide 24.0 Anion Gap 6 BUN 17 Creatinine 0.93 Estimated GFR 61 L Random Glucose 97 Calcium 7.6 L D Total Bilirubin 0.3 AST 16 ALT 17 Alkaline Phosphatase 41 L Total Protein 5.7 L Albumin 3.1 L - Imaging Impressions Ankle X-Ray 09/23/18 17:41 CONCLUSION: Apparently open fracture subluxation of the right ankle as described. Chest X-Ray 09/23/18 17:42 CONCLUSION: No evidence of acute cardiopulmonary disease. Head CT 09/23/18 17:42 CONCLUSION: 1. No bleed or other acute intracranial abnormality. 2. Extensive chronic white matter changes. 3. Right sphenoid sinusitis. Similar findings were seen on the prior MRI. . Pelvis X-Ray 09/23/18 17:42 CONCLUSION: Intact pelvis. Ankle X-Ray 09/23/18 18:39 CONCLUSION: Interim closed reduction and casting of the ankle fracture/subluxation. Near- anatomic alignment. Ankle X-Ray 09/24/18 00:00 CONCLUSION: Excellent alignment of the patient's fracture post plating. Assessment and Plan - Plan 67-year-old female admitted secondary to open fracture right ankle sustaining a fall Fall, right open ankle fracture -Orthopedic services consulted, s/p irrigation and debridement of open right ankle fracture, open reduction internal fixation right distal fibula, open reduction to fixation right ankle syndesmosis -PT consulted Pain control with [place] -Precautions as recommended by Ortho DVT prophylaxisASA (per ortho) Discussed Condition With: Patient, RN and family at bedside. Discharge Planning: Pending orthopedic clearance.
[2018-09-24] MEDS: Gentamicin/NS 80 mg Premix 100 ML IV.SIG SCH (15:11)
[2018-09-24] MEDS: ceFAZolin 2 GM Premix Inj 2 GM/50 ML PIGGYBACK IV.SIG SCH ×2 (15:11→23:45)
[2018-09-24] MEDS: Sod Chloride 0.9% Inj 1,000 ML IV.CONT SCH ×2 (16:23→21:14)
[2018-09-25] MEDS: Gentamicin/NS 80 mg Premix 100 ML IV.SIG SCH ×2 (00:39→07:46)
[2018-09-25] MEDS: ceFAZolin 2 GM Premix Inj 2 GM/50 ML PIGGYBACK IV.SIG SCH (06:20)
[2018-09-25 06:34] VITALS: RESP 18
--- NOTE | 2018-09-25 06:39 | P.PNOP ---
Subjective Interval history: Some difficulty with pain control overnight. No new complaints Physical Exam Vital signs: Vital Signs 09/24/18 08:40 09/24/18 08:45 09/24/18 08:57 Temperature 97.6 F Pulse Rate 91 H 76 Respiratory Rate 21 8 L 17 Blood Pressure 114/60 111/60 Pulse Oximetry 98 99 09/24/18 09:00 09/24/18 09:15 09/24/18 09:30 Temperature 97.7 F Pulse Rate 76 74 72 Respiratory Rate 20 14 15 Blood Pressure 112/57 L 99/52 L 121/59 L Pulse Oximetry 97 100 100 09/24/18 12:00 09/24/18 16:00 09/24/18 20:00 Temperature 98.2 F 98.0 F 98 F Pulse Rate 77 67 74 Respiratory Rate 12 12 20 Blood Pressure 114/55 L 125/70 143/69 H Pulse Oximetry 95 99 99 09/25/18 00:00 09/25/18 04:00 Temperature 98.1 F 97.6 F Pulse Rate 71 77 Respiratory Rate 16 18 Blood Pressure 129/65 127/65 Pulse Oximetry 96 99 Intake & Output 09/24/18 09/24/18 09/25/18 06:59 18:59 06:59 Intake Total 678 / 678 1690 / 1690 150 / 150 Output Total Balance 678 / 678 1665 / 1665 150 / 150 Weight 57.6 kg 57.4 kg Intake: IV 678 / 678 650 / 650 150 / 150 NS Inj 1,000 ML @ 80 mls/hr IV. 578 / 578 500 / 500 CONT .[id number] [facility] Rx#:[id number] Gentamicin/NS 80 mg Premix 100 100 / 100 100 / 100 ML @ 200 mls/hr IV.SIG Q8H [facility] Rx#:[id number] Ancef 2 GM Premix Inj 2 gm In 50 / 50 50 / 50 50 / 50 50 ml @ 100 mls/hr IV.SIG Q8H [facility] Rx#:[id number] Oral 240 / 240 Anesthesia Amount 800 / 800 Output: Estimated Blood Loss Other: # Voids 2 2 Date of Last Bowel Movement 09/23/18 09/23/18 Weight On Admission 54.43 kg Narrative: Right lower extremity: Splint intact. Intact sensation in all toes. Is able to move toes both dorsiflexion and plantarflexion. Good capillary refills. Results - Labs CBC & Chem 7: 09/24/18 05:24 09/24/18 05:24 Laboratory Results - last 24 hr 09/24/18 09/24/18 05:24 05:24 WBC 7.1 RBC 3.53 L Hgb 12.1 Hct 34.8 L MCV 98.6 MCH 34.3 H MCHC 34.8 RDW 12.8 Plt Count 170 MPV 8.6 Neut % (Auto) 65.2 Lymph % (Auto) 22.1 [place] % (Auto) 11.4 H Eos % (Auto) 1.0 Baso % (Auto) 0.3 Neut # (Auto) 4.6 Lymph # (Auto) 1.6 [place] # (Auto) 0.8 Eos # (Auto) 0.1 Baso # (Auto) 0.0 WBC Differential . Differential Comment Auto diff final Sodium 142 Potassium 3.7 Chloride 112 H Carbon Dioxide 24.0 Anion Gap 6 BUN 17 Creatinine 0.93 Estimated GFR 61 L Random Glucose 97 Calcium 7.6 L D Total Bilirubin 0.3 AST 16 ALT 17 Alkaline Phosphatase 41 L Total Protein 5.7 L Albumin 3.1 L - Imaging Impressions Ankle X-Ray 09/24/18 00:00 CONCLUSION: Excellent alignment of the patient's fracture post plating. Assessment and Plan - Assessment and Plan Right open ankle fracture status post irrigation debridement and ORIF POD 1 Maintain splint Nonweightbearing right lower extremity Elevation Once pain is controlled and is cleared by physical therapy she may be discharged home Follow-up with Dr. Groves in 2 weeks SCDs, CHRISTINA vang, ASA
--- NOTE | 2018-09-25 06:41 | ECG ---
Date Performed: 09/24/2018 Time Performed: 04:39:08 PTAGE: 67 years EKG: Sinus rhythm Normal ECG PREVIOUS TRACING : 08/17/2016 10.55 Since the previous tracing, no significant change noted DOCTOR: Masoud Mcguire Interpretating Date/Time 09/25/2018 06:40:20
[2018-09-25] MEDS: Lactobacillus Acidophilus/L. Spores Tablet PO SCH ×2 (08:42→12:18)
[2018-09-25] MEDS: Calcium/Vitamin D 250/125 MG Tablet PO SCH ×2 (08:42→12:18)
[2018-09-25] MEDS: Senna/Docusate Sodium 8.6/50 MG Tablet PO SCH (08:42)
[2018-09-25 09:37] VITALS: BP 117/60; PULSE 75; TEMP 98.4; O2SAT 97
[2018-09-25] MEDS: Sod Chloride 0.9% Inj 1,000 ML IV.CONT SCH (09:55)
--- NOTE | 2018-09-25 10:16 | P.DS ---
Date of admission: 09/23/18 19:29 Primary care physician: Melody Shah Attending physician on discharge: Agnieszka Mckeon Anticipated date of discharge: 09/25/18 Brief History from admission: Mrs. Muñoz is a 67-year-old female. She came in the hospital today after sustaining trauma to her right ankle. She has a right open ankle fracture. This occurred when she was coming out of the attic and fell landing up on her foot. She has no pre-existing medical history. Primary complaint is pain at the right ankle. Plan for orthopedic repair tomorrow morning. DS: Medications - Discharge Medications Prescriptions: aspirin 81 mg PO Q12H #28 tab hydrocodone-acetaminophen [[place]] 1 tab PO Q4-6H PRN #42 tab PRN Reason: Acute Pain DS: Summary Hospital Course: 67-year-old female with relatively no past medical history who sustained a fall while at home resulting in right ankle trauma. Patient was admitted to the hospital on 09/23 and imaging revealed open fracture subluxation of right ankle. Orthopedic services was consulted and patient underwent irrigation and debridement of open right ankle fracture, open reduction internal fixation right distal fibula, open reduction to fixation right ankle syndesmosis by Dr. Groves on 09/24. Patient was seen and evaluated by physical therapy who recommended home health along with a wheeled walker and bedside commode. Her pain was adequately controlled and she was cleared for discharge by orthopedic services once seen again this morning by physical therapy. Case management has made arrangements for delivery of equipment at home. She is seen and examined sitting up in bed in no acute distress with at bedside. Reports her pain is well controlled and denies any fevers, chills, nausea, vomiting or diarrhea. She would like to go home today, voices no other acute concerns or complaints at the moment. - Time Spent with Patient Total time spent providing and/or coordinating discharge services: Less than 30 minutes - Quality: VTE Deep Vein Thrombosis/Pulmonary Embolism Present on Admission: No Exam Vital signs: Vital Signs 09/24/18 12:00 09/24/18 16:00 09/24/18 20:00 Temperature 98.2 F 98.0 F 98 F Pulse Rate 77 67 74 Respiratory Rate 12 12 20 Blood Pressure 114/55 L 125/70 143/69 H Pulse Oximetry 95 99 99 09/25/18 00:00 09/25/18 04:00 09/25/18 08:00 Temperature 98.1 F 97.6 F 98.4 F Pulse Rate 71 77 75 Respiratory Rate 16 18 Blood Pressure 129/65 127/65 117/60 Pulse Oximetry 96 99 97 Intake & Output 09/24/18 09/25/18 09/25/18 18:59 06:59 18:59 Intake Total 1690 / 1690 630 / 630 50 / 50 Output Total Balance 1665 / 1665 630 / 630 50 / 50 Weight 57.4 kg Intake: IV 650 / 650 150 / 150 50 / 50 NS Inj 1,000 ML @ 80 mls/hr IV. 500 / 500 CONT .[id number] [facility] Rx#:[id number] Gentamicin/NS 80 mg Premix 100 100 / 100 100 / 100 ML @ 200 mls/hr IV.SIG Q8H [facility] Rx#:[id number] Ancef 2 GM Premix Inj 2 gm In 50 / 50 50 / 50 50 / 50 50 ml @ 100 mls/hr IV.SIG Q8H [facility] Rx#:[id number] Oral 240 / 240 480 / 480 Anesthesia Amount 800 / 800 Output: Estimated Blood Loss Other: # Voids 2 2 Date of Last Bowel Movement 09/23/18 09/23/18 Narrative: GENERAL: Well-nourished, well-developed female in no acute distress. SKIN: Warm and dry. HEAD: Atraumatic. Normocephalic. EYES: Pupils equal and round. No scleral icterus. No injection or drainage. ENT: No nasal bleeding or discharge. Mucous membranes pink and moist. NECK: Trachea midline. No JVD. CARDIOVASCULAR: Regular rate and rhythm. RESPIRATORY: No accessory muscle use. Clear to auscultation. Breath sounds equal bilaterally. GASTROINTESTINAL: Abdomen soft, non-tender, nondistended. + Bowel sounds MUSCULOSKELETAL: Extremities without clubbing or cyanosis. Right lower extremity in immobilizer, positive toe movement, capillary refill less than 3 seconds, warm, positive sensation. NEUROLOGICAL: Awake, alert, oriented x3. No obvious cranial nerve deficits. Motor grossly within normal limits. Normal speech. PSYCHIATRIC: Appropriate mood and affect; insight and judgment normal. Results Procedures completed during hospitalization: Date of procedure: 09/24/18 Procedure: Irrigation and debridement of open right ankle fracture, open reduction internal fixation right distal fibula, open reduction to fixation right ankle syndesmosis Anesthesia: GETA Surgeon: Jorgito Groves MD Tobacco Educator: JUANA Kennedy PA-C - Impressions ITS Impressions Chest X-Ray 09/23/18 17:42 CONCLUSION: No evidence of acute cardiopulmonary disease. Head CT 09/23/18 17:42 CONCLUSION: 1. No bleed or other acute intracranial abnormality. 2. Extensive chronic white matter changes. 3. Right sphenoid sinusitis. Similar findings were seen on the prior MRI. . Pelvis X-Ray 09/23/18 17:42 CONCLUSION: Intact pelvis. Ankle X-Ray 09/24/18 00:00 CONCLUSION: Excellent alignment of the patient's fracture post plating. Discharge Plan - Discharge Disposition Patient Disposition: /Home Health Service - Discharge Condition Condition: Fair - Discharge Order Discharge Orders: Discharge Order (Routine); Ordered 09/25/18 Ordered By: Jillian Rodriguez Orthopedic Clear for Discharge (Routine); Ordered 09/25/18 Ordered By: Bogdan Talbot - Physicians Team Primary Care Provider: Melody Shah Attending Provider: Agnieszka Mckeon Other Providers: Jorgito Groves MD ; [employer]urance ; [employer] ,[employer]
== END 2018-09-25 13:41 | disposition home health service (06) ==
LOC: NEPE 17:32 → NEDA 19:29 → N06 22:03
PROVIDERS: ADMIT Hospitalist; ATTEND Hospitalist
PROC: ORIFANK (2018-09-24 07:12)